=== PATIENT | male | born 1950 | race Caucasian/White ===

== ENCOUNTER 2019-08-01 15:40 | Emergency (ER) | payer OTHER, MEDICARE ==
[~2019-08-01] VITALS: Ht 165.1 cm; Wt 72.3 kg
--- NOTE | 2019-08-01 16:07 | NUR ---
ASSUMED CARE OF PATIENT. PATIENT REPORTS HE HAS CHRONIC RIGHT FOOT PAIN X14 YEARS. PT WAS SEEN BY A PAIN MGT. DOCTOR, BUT ON Jun WAS RECENTLY TAKEN OFF HIS PAIN MEDS AND SWITCHED TO LYRICA. PT REPORTS HE HAS INCREASE IN FOOT PAIN AND THE MEDICATION IS NOT WORKING WELL. PT ALSO REPORTS CHEST HEAVINESS SINCE LAST NIGHT. HX OF HIGH BLOOD PRESSURE. VS STABLE. SURVEYOR ROD HELPER ON. NSR NOTED. WILL CONTINUE TO MONITOR.
[2019-08-01] MEDS ORDERED: HYDROcodone/APAP 5/325 TABLET ONE (16:18)
--- NOTE | 2019-08-01 16:26 | NUR ---
PT DENIES CHEST PAIN, CHEST PRESSURE AT THIS TIME. DR SANCHEZ AWARE. TECH IN ROOM DOING EKG.
[2019-08-01] MEDS ORDERED: HYDROcodone/APAP 5/325 TABLET PO ONE (16:30)
[2019-08-01] MEDS ORDERED: PLEASE ENTER ALLERGIES MC SCH (16:30)
--- NOTE | 2019-08-01 16:32 | NUR ---
PT READY FOR DISCHARGE PER DR SANCHEZ.
[2019-08-01 16:44] VITALS: BP 154/104
--- NOTE | 2019-08-01 16:44 | NUR ---
PT REPORTS HE HAS A RIDE HOME FOR DISCHARGE. PT DISCHARGED PER DR SANCHEZ.
== END 2019-08-01 16:47 | disposition home or self-care (01) ==
LOC: ED 16:02
DX: M25.571 Pain in right ankle and joints of right foot (principal); M79.671 Pain in right foot; I10 Essential (primary) hypertension; Z76.0 Encounter for issue of repeat prescription
CPT/HCPCS: 93005; 99283